=== PATIENT | female | born 1940 | race African-American/Black ===

== ENCOUNTER 2017-08-20 15:17 | Observation (INO) | payer MEDICARE, MEDICAID ==
[2017-08-20] MEDS ORDERED: METOCLOPRAMIDE HCL INJ/PF 10 MG/2 ML SDV IV ONE (16:05)
[2017-08-20] MEDS ORDERED: NITROGLYCERIN 0.4 MG/TAB 25 TAB/BOTTLE SL PRN (16:05)
[2017-08-20] MEDS ORDERED: MORPHINE SULFATE 10 MG/ML INJ IV ONE (16:06)
[2017-08-20] MEDS ORDERED: NORMAL SALINE 1000 ML 1,000 ML IV PRN (16:06)
[2017-08-20] MEDS ORDERED: DIPHENHYDRAMINE HCL 50 MG/ML VIAL IV ONE (16:06)
--- NOTE | 2017-08-20 16:08 | ER Document Report ---
ED Cardiac - General Chief Complaint: Chest Pain > 30 Stated Complaint: CHEST PAIN Time Seen by Provider: 08/20/17 16:05 Mode of Arrival: Ambulatory Information source: Patient Notes: This is a 77-year-old female with a history of coronary artery disease ([place], 4 stents in the past), hypertension, dyslipidemia, reflux who presents to the emergency room with retrosternal chest pain radiating down the left arm associated with shortness of breath and headache. Patient took full dose aspirin prior to coming to the emergency room. TRAVEL OUTSIDE OF THE [place] IN LAST 30 DAYS: No - HPI Patient complains to provider of: Chest pain Use of: denies: Alcohol, Amphetamines, Bath salts, Caffeine, Cocaine, Decongestants, Other Was the onset of pain: Gradual Is the pain a: New problem Chest pain location: Substernal Quality of pain: Dull Chest pain radiation location: Left arm, Left shoulder Severity now: Mild Severity at worst: Moderate Pain level currently: 1 Chest pain precipitating factors: At Rest Cardiac risk factors: Hypertension, Dyslipidemia, Hx NE Positive cardiac history: Yes Associated symptoms: Headache, Shortness of breath. denies: Abdominal pain, Jaw pain, Syncope Exacerbated by: Denies Relieved by: NTG Similar symptoms previously: Yes Recently seen / treated by doctor: No - Related Data Allergies/Adverse Reactions: Radiation Dye Allergy (Uncoded 07/25/15 12:04) Past Medical History - General Information source: Patient - Social History Smoking Status: Never Smoker Cigarette use (# per day): No Chew tobacco use (# tins/day): No Frequency of alcohol use: None Drug Abuse: None Lives with: Family Family History: Reviewed & Not Pertinent Patient has suicidal ideation: No Patient has homicidal ideation: No - Past Medical History Cardiac Medical History: Reports: Hx Coronary Artery Disease, Hx Heart Attack, Hx Hypercholesterolemia, Hx Hypertension Pulmonary Medical History: Denies: Hx Tuberculosis GI Medical History: Reports: Hx Gastroesophageal Reflux Disease Musculoskeltal Medical History: Reports Hx Arthritis Past Surgical History: Reports: Hx Bowel Surgery - COLON CA 1993, Hx Cardiac Catheterization - 4X stents, Hx Coronary Stent, Hx Tubal Ligation. Denies: Hx Pacemaker - Immunizations Hx Diphtheria, Pertussis, Tetanus Vaccination: Yes Hx Pneumococcal Vaccination: 08/21/07 Review of Systems - Review of Systems Constitutional: denies: Chills, Fever EENT: No symptoms reported Cardiovascular: See HPI Respiratory: No symptoms reported Gastrointestinal: No symptoms reported Genitourinary: No symptoms reported Female Genitourinary: No symptoms reported Musculoskeletal: No symptoms reported Skin: No symptoms reported Hematologic/Lymphatic: No symptoms reported Neurological/Psychological: No symptoms reported Physical Exam - Vital signs Vitals: Resp BP Pulse Ox 12 138/71 H 100 08/20/17 15:37 08/20/17 15:37 08/20/17 15:37 Notes: Physical exam: GENERAL: 77-year-old female, alert and oriented 3, blood pressure 138/71, pulse 69, respiratory rate 18, O2 sat 100% on room air HEAD: Atraumatic, normocephalic. EYES: Pupils equal round and reactive to light, extraocular movements intact, sclera anicteric, conjunctiva are normal. ENT: TMs normal, nares patent, oropharynx clear without exudates. Moist mucous membranes. NECK: Normal range of motion, supple without obvious mass or JVD. LUNGS: Breath sounds clear to auscultation bilaterally and equal. No wheezes rales or rhonchi. HEART: Regular rate and rhythm without murmurs, rubs or gallops. ABDOMEN: Soft, normoactive bowel sounds. No tenderness to palpation. No guarding, no rebound. No masses appreciated. EXTREMITIES: Normal range of motion, no pitting or edema. No clubbing or cyanosis. NEUROLOGICAL: Cranial nerves II through XII grossly intact. Normal speech, moving all extremities. PSYCH: Normal mood, normal affect. SKIN: Warm, Dry, normal turgor, no rashes or lesions noted. Course - Vital Signs Vital signs: Temp Pulse Resp BP Pulse Ox 14 137/66 H 97 08/20/17 18:01 08/20/17 18:01 08/20/17 18:01 - Laboratory Result Diagrams: 08/20/17 16:17 08/20/17 16:17 Laboratory results interpreted by me: 08/20/17 08/20/17 16:17 16:17 Hgb 11.8 L MCH 26.8 L RDW 14.4 H Seg Neutrophils % 40.6 L BUN 34 H Est GFR (Non-Af Amer) 55 L Glucose 112 H Calcium 10.5 H Total Protein 8.3 H - Diagnostic Test Radiology reviewed: Image reviewed, Reports reviewed - Chest x-ray shows no infiltrates - EKG Interpretation by Me Rate: Normal Rhythm: NSR - EKG shows normal sinus rhythm with a left axis deviation, intraventricular conduction delay with poor R-wave progression. Discharge - Discharge Clinical Impression: Chest pain Condition: Stable Disposition: ADMITTED OBSERVATION Admitting Provider: Hospitalist - Dr House Unit Admitted: [facility]
[2017-08-20 16:30] LABS: ABSOLUTE EOSINOPHILS # (AUTO) 0.1 10^3/uL (0.0-0.6); ABSOLUTE LYMPHOCYTES (AUTO) 2.8 10^3/uL (0.5-4.7); ABSOLUTE MONOCYTES (AUTO) 0.7 10^3/uL (0.1-1.4); ABSOLUTE NEUT (AUTO) 2.5 10^3/uL (1.7-8.2); BASOPHILS % (AUTO) 0.7 % (0-2); EOSINOPHILS % (AUTO) 2.4 % (0-6); HEMATOCRIT 36.5 % (36.0-47.0); HEMOGLOBIN 11.8 g/dL (12.0-15.5); LYMPHOCYTES % (AUTO) 44.9 % (13-45); MEAN CORPUSCULAR HEMOGLOBIN 26.8 pg (27.0-33.4); MEAN CORPUSCULAR HGB CONC 32.2 g/dL (32.0-36.0); MEAN CORPUSCULAR VOLUME 83 fl (80-97); MONOCYTES % (AUTO) 11.4 % (3-13); PLATELET COUNT 286 10^3/uL (150-450); RED BLOOD COUNT 4.39 10^6/uL (3.72-5.28); RED CELL DISTRIBUTION WIDTH 14.4 % (11.5-14.0); SEGMENTED NEUTROPHILS % (AUTO) 40.6 % (42-78); TOTAL CELLS COUNTED % (AUTO) 100 %; WHITE BLOOD COUNT 6.2 10^3/uL (4.0-10.5)
[2017-08-20 16:34] LABS: INTERNATIONAL RATION (INR) 0.87; PROTHROMBIN TIME 12.5 SEC (11.4-15.4)
[2017-08-20 16:54] LABS: ALANINE AMINOTRANSFERASE 24 U/L (9-52); ALBUMIN 4.4 g/dL (3.5-5.0); ALKALINE PHOSPHATASE 73 U/L (38-126); ANION GAP 11 (5-19); ASPARTATE AMINO TRANSFERASE 26 U/L (14-36); BILIRUBIN,DIRECT 0.2 mg/dL (0.0-0.4); BILIRUBIN,TOTAL 0.2 mg/dL (0.2-1.3); BLOOD UREA NITROGEN 34 mg/dL (7-20); CALCIUM 10.5 mg/dL (8.4-10.2); CARBON DIOXIDE 25 mmol/L (22-30); CHLORIDE 105 mmol/L (98-107); CREATINE KINASE 94 U/L (30-135); GLUCOSE 112 mg/dL (75-110); POTASSIUM 3.8 mmol/L (3.6-5.0); SODIUM 140.6 mmol/L (137-145); TOTAL PROTEIN 8.3 g/dL (6.3-8.2)
[2017-08-20 17:00] LABS: CREATINE KINASE MB 1.41 ng/mL (<4.55); TROPONIN I 0.012 ng/mL
--- NOTE | 2017-08-20 17:18 | RADIOLOGY REPORT (SQ) ---
EXAM DESCRIPTION: CHEST SINGLE VIEW COMPLETED DATE/TIME: 08/20/2017 4:26 pm REASON FOR STUDY: cp COMPARISON: July 2015 EXAM PARAMETERS: NUMBER OF VIEWS: One view. TECHNIQUE: Single frontal radiographic view of the chest acquired. RADIATION DOSE: NA LIMITATIONS: None. FINDINGS: LUNGS AND PLEURA: No opacities, masses or pneumothorax. No pleural effusion. MEDIASTINUM AND HILAR STRUCTURES: No masses. Contour normal. HEART AND VASCULAR STRUCTURES: Cardiac silhouette remains enlarged and is unchanged in configuration. Tortuous thoracic aorta is again identified. BONES: No acute findings. HARDWARE: None in the chest. OTHER: Some elevation of the right hemidiaphragm is again seen. IMPRESSION: No significant interval change. No acute findings. Other findings as noted above TECHNICAL DOCUMENTATION: JOB ID: [id number] [employer]- All Rights Reserved
[2017-08-20] MEDS ORDERED: NITROGLYCERIN 2% OINTMENT 1 GM PACKET TP ONE (17:30)
[2017-08-20] MEDS ORDERED: OXYCODONE-ACETAMINOPHEN 5-325 MG TABLET PO PRN (18:16)
[2017-08-20] MEDS ORDERED: ACETAMINOPHEN 325 MG TABLET PO PRN (18:16)
[2017-08-20] MEDS ORDERED: ONDANSETRON HCL INJ/PF 4 MG/2 ML SDV IV PRN (18:16)
[2017-08-20] MEDS ORDERED: TEMAZEPAM 7.5 MG CAPSULE PO PRN (18:16)
--- NOTE | 2017-08-20 18:16 | PDOC H&P ---
History of Present Illness Admission Date/PCP: 2016 Patient complains of: Chest pain, dizziness and headache. History of Present Illness: NIGEL CEVALLOS is a 77 year old female with known coronary artery disease. She has a history of prior stent placement by Dr. Chris Diaz. The patient stated that she woke up this morning and went to the kitchen. While she was standing up at approximately 7 AM she started to have chest pain that radiated down her left arm. The pain has been present intermittently throughout the day. It generally lasts for 10-15 minutes and then subsides. She thinks that it is worse with exertion but she was unable to list any alleviating factors. She stated that even sitting down did not alleviate her symptoms. As stated above the pain radiates down her left arm. It is also associated with lightheadedness, dizziness and nausea. She is also complaining of a frontal dull ache across her forehead and her neck is hurting. She has had mild symptoms yesterday but did not want to seek medical attention. The patient was recently hospitalized on 01 August 2017 at [facility] in [place] for similar symptoms. According to the patient's daughter they performed an echocardiogram and were told that it "" looked good. During that hospitalization she was noted to have heart rates into the 30s. Her metoprolol was discontinued. She states that her symptoms today are very similar to the symptoms she had when she was admitted at [facility]. When she was discharged from [facility] she actually felt very well until yesterday. Please note that the patient is unable to give me her current medication list. The list below is currently unverified. Past Medical History Cardiac Medical History: Reports: Coronary Artery Disease, Myocardial Infarction , Hyperlipidema, Hypertension Pulmonary Medical History: Denies: Tuberculosis GI Medical History: Reports: Gastroesophageal Reflux Disease Musculoskeltal Medical History: Reports: Arthritis Past Surgical History Past Surgical History: Reports: Cardiac Catheterization - 4X stents, Coronary Stent, Tubal Ligation Denies: Pacemaker Social History Smoking Status: Never Smoker Frequency of Alcohol Use: None Hx Recreational Drug Use: No Hx Prescription Drug Abuse: No - Advance Directive Resuscitation Status: Full Code Surrogate healthcare decision maker:: The patient's surrogate decision maker is her daughter, Urvashi olivo. She can be reached at [phone]. Family History Family History: Reviewed & Not Pertinent Parental Family History Reviewed: Yes - Hypertension, coronary artery disease. Children Family History Reviewed: Yes Sibling(s) Family History Reviewed.: Unknown Medication/Allergy Home Medications: Pravastatin Sodium [Pravachol] 40 mg PO DAILY 07/10/11 Aspirin [Aspirin 81 mg Chewable Tablet] 2 tab PO DAILY 07/11/11 Amlodipine Besylate 1 tab PO DAILY 03/24/13 Clopidogrel Bisulfate [Plavix 75 mg Tablet] 75 mg PO QHS 03/24/13 Dexlansoprazole [Dexilant 60 mg Capsule] 60 mg PO DAILY 03/24/13 Losartan Potassium 100 mg PO DAILY 03/24/13 Meclizine HCl [Antivert 25 mg Tablet] 12.5 mg PO QHS PRN 03/24/13 Metoprolol Tartrate [Lopressor 25 mg Tablet] 12.5 mg PO BID 03/24/13 Ranolazine [Ranexa 500 mg Tab.sr] 500 mg PO Q12 #60 tab.sr.12h 07/26/15 Allergies/Adverse Reactions: Radiation Dye Allergy (Uncoded 07/25/15 12:04) Review of Systems Constitutional: PRESENT: headache(s) Eyes: ABSENT: visual disturbances Ears: ABSENT: hearing changes Nose, Mouth, and Throat: PRESENT: headache(s). ABSENT: as per HPI, mouth pain, sore throat, vertigo, other Cardiovascular: PRESENT: chest pain Respiratory: ABSENT: cough, hemoptysis Gastrointestinal: PRESENT: nausea Genitourinary: ABSENT: dysuria, hematuria Musculoskeletal: ABSENT: joint swelling Integumentary: ABSENT: rash, wounds Neurological: ABSENT: abnormal gait, abnormal speech, confusion, dizziness, focal weakness, syncope Psychiatric: ABSENT: anxiety, depression, homidical ideation, suicidal ideation Endocrine: ABSENT: cold intolerance, heat intolerance, polydipsia, polyuria Hematologic/Lymphatic: ABSENT: easy bleeding, easy bruising Allergic/Immunologic: ABSENT: as per HPI, seasonal rhinorrhea, other Physical Exam Vital Signs: Temp Pulse Resp BP Pulse Ox 100 08/20/17 16:08 Additional comments: The patient appears to be very healthy for her stated age. Her cognition and mentation are appropriate. She does not appear to be toxic or in any distress. Her facial appearance is unremarkable. Her oropharynx is benign without purulent exudates. Mucous membranes are very moist. Lips are normal. She does not have any JVD. Her neck is supple. She does not have any cervical or supraclavicular lymphadenopathy. The trachea is midline. Thyroid is nonpalpable. Lungs are clear to auscultation bilaterally. Patient's cardiac exam is regular. I do not appreciate any murmurs, gallops or rubs. The abdomen is soft and flat. Bowel sounds are noted in the lower quadrants. She does not have guarding or rebound noted and there are no hernias or masses present. The lower extremities are warm to touch without any pitting edema. The skin is warm dry and intact without lesions or rashes. Results Laboratory Results: 08/20/17 16:17 08/20/17 16:17 08/20/17 08/20/17 16:17 16:17 WBC 6.2 RBC 4.39 Hgb 11.8 L Hct 36.5 MCV 83 MCH 26.8 L MCHC 32.2 RDW 14.4 H Plt Count 286 Seg Neutrophils % 40.6 L Lymphocytes % 44.9 Monocytes % 11.4 Eosinophils % 2.4 Basophils % 0.7 Absolute Neutrophils 2.5 Absolute Lymphocytes 2.8 Absolute Monocytes 0.7 Absolute Eosinophils 0.1 Absolute Basophils 0.0 Sodium 140.6 Potassium 3.8 Chloride 105 Carbon Dioxide 25 Anion Gap 11 BUN 34 H Creatinine 0.98 Est GFR ( Amer) > 60 Est GFR (Non-Af Amer) 55 L Glucose 112 H Calcium 10.5 H Total Bilirubin 0.2 AST 26 ALT 24 Alkaline Phosphatase 73 Total Protein 8.3 H Albumin 4.4 08/20/17 08/20/17 16:17 16:17 Creatine Kinase 94 CK-MB (CK-2) 1.41 Troponin I 0.012 Impressions: Chest X-Ray 08/20/17 16:08 IMPRESSION: No significant interval change. No acute findings. Other findings as noted above Assessment & Plan - Diagnosis (1) Bradycardia Is this a current diagnosis for this admission?: No (2) Dizziness Is this a current diagnosis for this admission?: Yes (3) Coronary artery disease Is this a current diagnosis for this admission?: Yes (4) GERD (gastroesophageal reflux disease) Is this a current diagnosis for this admission?: Yes (5) Diabetes mellitus Is this a current diagnosis for this admission?: Yes (6) Chest pain Qualifiers: Chest pain type: unspecified Qualified Code(s): R07.9 - Chest pain, unspecified Is this a current diagnosis for this admission?: Yes - Time Time Spent: 50 to 70 Minutes - Inpatient Certification Medical Necessity: Risk of Complication if Not Cared For in Hospital, Risk of Diagnosis Which Will Require Inpatient Eval/Care/Monitoring - Plan Summary Plan Summary: The patient is a 77-year-old female with known coronary artery disease. She presents with chest pain. Her symptoms are somewhat atypical for ischemic heart disease. She has associated nausea and headache. In addition, she was recently evaluated at [facility] for bradycardia associated with hypotension. Since her metoprolol has been held she has been feeling better until yesterday. She had an echocardiogram in [place] that was "" normal. At this point time we will admit the patient to observation status. She will get cardiac rule outs. I need to reconcile her medication list because she was unable to tell me what her medications were upon discharge from her previous hospitalization. I do not think the patient has evidence of influenza or other viral prodrome at this time. It is likely that she has fluctuations in her heart rate and blood pressure. She did tell me that Dr. Diaz in [place] recently did a Holter monitor which was unremarkable. Certainly, she warrants telemetry monitoring overnight. She is not appropriate for discharge home until a complete set of 3 cardiac enzymes has been performed.
[2017-08-20] MEDS ORDERED: 1/2 NORMAL SALINE 1,000 ML IV PRN (18:23)
[2017-08-20 19:29] LABS: CREATINE KINASE MB 1.44 ng/mL (<4.55)
[2017-08-20 19:34] LABS: TROPONIN I < 0.012 ng/mL
[2017-08-20] MEDS: FAMOTIDINE 20 MG TABLET PO SCH (22:10)
[2017-08-21 01:36] LABS: CREATINE KINASE MB 1.43 ng/mL (<4.55)
[2017-08-21 01:39] LABS: TROPONIN I < 0.012 ng/mL
[2017-08-21 07:25] LABS: ANION GAP 10 (5-19); BLOOD UREA NITROGEN 22 mg/dL (7-20); CALCIUM 9.8 mg/dL (8.4-10.2); CARBON DIOXIDE 25 mmol/L (22-30); CHLORIDE 105 mmol/L (98-107); CREATINE KINASE 80 U/L (30-135); GLUCOSE 102 mg/dL (75-110); MAGNESIUM 1.8 mg/dL (1.6-2.3); POTASSIUM 3.9 mmol/L (3.6-5.0); SODIUM 139.9 mmol/L (137-145)
[2017-08-21 07:31] LABS: CREATINE KINASE MB 1.34 ng/mL (<4.55); TROPONIN I 0.013 ng/mL
[2017-08-21] MEDS: FAMOTIDINE 20 MG TABLET PO SCH (09:44)
[2017-08-21] MEDS: HYDRALAZINE HCL 25 MG TABLET PO SCH ×2 (09:45→17:14)
[2017-08-21] MEDS ORDERED: (PENDING PHARMACY ID) (Pravastatin Sodium [Pravachol] 40 MG) PO SCH (10:00)
[2017-08-21] MEDS ORDERED: ASPIRIN 81 MG TABLET, CHEWABLE PO SCH (10:00)
[2017-08-21] MEDS ORDERED: (PENDING PHARMACY ID) (Losartan Potassium [Losartan Potassium] 100 MG) PO SCH (10:00)
[2017-08-21] MEDS ORDERED: LOSARTAN POTASSIUM 50 MG TABLET PO SCH (10:00)
--- NOTE | 2017-08-21 11:29 | RADIOLOGY REPORT (SQ) ---
EXAM DESCRIPTION: CERV SP 3 VIEW OR LESS COMPLETED DATE/TIME: 08/21/2017 11:18 am REASON FOR STUDY: Neck pain and dizzyness COMPARISON: None. NUMBER OF VIEWS: Three views. TECHNIQUE: AP, lateral and odontoid radiographic images acquired of the cervical spine. LIMITATIONS: None. FINDINGS: MINERALIZATION: Normal. ALIGNMENT: Anatomic. VERTEBRAE: Vertebral bodies of normal height. DISCS: Multilevel degenerative disc disease with uncinate joint hypertrophy and osteophyte formation. HARDWARE: None in the spine. SOFT TISSUES: No masses or calcifications. Lung apices clear. OTHER: No other significant finding. IMPRESSION: MULTILEVEL DEGENERATIVE CHANGE WITHOUT ACUTE OSSEOUS ABNORMALITY. TECHNICAL DOCUMENTATION: JOB ID: [id number] [employer]- All Rights Reserved
[2017-08-21] MEDS ORDERED: FLUTICASONE NASAL SPRAY 50 MCG/SPRY 120 SPRAY/16 GM NASL ONE (11:30)
--- NOTE | 2017-08-21 17:21 | PDOC DISCHARGE SUMMARY ---
General - Admit/Disc Date/PCP Admission Date/Primary Care Provider: 08/20/17 18:17 Discharge Date: 08/21/17 - Discharge Diagnosis (1) Bradycardia Is this a current diagnosis for this admission?: No (2) Dizziness Is this a current diagnosis for this admission?: Yes (3) Coronary artery disease Is this a current diagnosis for this admission?: Yes (4) GERD (gastroesophageal reflux disease) Is this a current diagnosis for this admission?: Yes (5) Diabetes mellitus Is this a current diagnosis for this admission?: Yes (6) Chest pain Is this a current diagnosis for this admission?: Yes (7) Disc disease, degenerative, cervical Is this a current diagnosis for this admission?: Yes (8) Headache Is this a current diagnosis for this admission?: Yes - Additional Information Resuscitation Status: Full Code Discharge Diet: Cardiac Discharge Activity: Activity As Tolerated, Balance Activity w/Rest Home Medications: Aspirin [Aspirin 81 mg Chewable Tablet] 81 mg PO DAILY tab.chew 08/21/17 Clopidogrel Bisulfate [Plavix 75 mg Tablet] 75 mg PO DAILY 08/21/17 Hydralazine HCl [Apresoline 25 mg Tablet] 25 mg PO Q8 08/21/17 Hydrochlorothiazide [Hydrodiuril 25 mg Tablet] 25 mg PO DAILY 08/21/17 Losartan Potassium [Cozaar 100 mg Tablet] 100 mg PO DAILY 08/21/17 Pantoprazole Sodium [Protonix] 40 mg PO DAILY 08/21/17 Pravastatin Sodium [Pravachol] 40 mg PO DAILY 08/21/17 History of Present Illness History of Present Illness: NIGEL CEVALLOS is a 77 year old female with known coronary artery disease. She has a history of prior stent placement by Dr. Chris Diaz. The patient stated that she woke up this morning and went to the kitchen. While she was standing up at approximately 7 AM she started to have chest pain that radiated down her left arm. The pain has been present intermittently throughout the day. It generally lasts for 10-15 minutes and then subsides. She thinks that it is worse with exertion but she was unable to list any alleviating factors. She stated that even sitting down did not alleviate her symptoms. As stated above the pain radiates down her left arm. It is also associated with lightheadedness, dizziness and nausea. She is also complaining of a frontal dull ache across her forehead and her neck is hurting. She has had mild symptoms yesterday but did not want to seek medical attention. The patient was recently hospitalized on 01 August 2017 at [facility] in [place] for similar symptoms. According to the patient's daughter they performed an echocardiogram and were told that it "" looked good. During that hospitalization she was noted to have heart rates into the 30s. Her metoprolol was discontinued. She states that her symptoms today are very similar to the symptoms she had when she was admitted at [facility]. When she was discharged from [facility] she actually felt very well until yesterday. Hospital Course Hospital Course: The patient was admitted and ruled out for myocardial infarction by cardiac enzymes. Her chest pain is atypical. Her main complaint is headache. The appears to be due to sinus pressure. She was started on flonase 2 sprays once per day. She also complains of dizziness and neck pain. Cervical films were done showing significant cervical disc disease. Her medications were otherwise unchanged. Metoprolol was recently discontinued when she was recently admitted to [facility] in [place], [place]. Physical Exam Vital Signs: Temp Pulse Resp BP Pulse Ox 98.0 F 64 18 116/83 99 08/21/17 15:45 08/21/17 15:45 08/21/17 15:45 08/21/17 15:45 08/21/17 15:45 Intake & Output 08/20/17 08/21/17 08/22/17 06:59 06:59 06:59 Intake Total 972 375 Balance 972 375 Weight 91.1 kg General appearance: PRESENT: no acute distress, cooperative Head exam: PRESENT: atraumatic, normocephalic Eye exam: PRESENT: EOMI, PERRLA Ear exam: PRESENT: normal external ear exam Mouth exam: PRESENT: neck supple Throat exam: ABSENT: post pharyngeal erythema, tonsillar erythema, tonsillar exudate, tonsillogmegaly, other Neck exam: PRESENT: carotid bruit, full ROM, JVD, lymphadenopathy, meningismus, tenderness, thyromegaly, tracheal deviation, tracheostomy, other Respiratory exam: PRESENT: clear to auscultation vitor. ABSENT: rales, rhonchi, wheezes Cardiovascular exam: PRESENT: RRR. ABSENT: diastolic murmur, rubs, systolic murmur Pulses: PRESENT: normal dorsalis pedis pul GI/Abdominal exam: PRESENT: normal bowel sounds, soft. ABSENT: distended, guarding, mass, organolmegaly, rebound, tenderness Rectal exam: PRESENT: deferred Neurological exam: PRESENT: alert, awake, oriented to person, oriented to place , oriented to time, oriented to situation, CN II-XII grossly intact. ABSENT: motor sensory deficit Psychiatric exam: PRESENT: appropriate affect, normal mood. ABSENT: homicidal ideation, suicidal ideation Focused psych exam: ABSENT: catatonic, delusional, euphoric, flight of ideas, internal stimuli, paranoid, pressured speech, psychomotor agitation, restlessness, other Skin exam: PRESENT: dry, intact, warm. ABSENT: cyanosis, rash Results Laboratory Results: 08/21/17 06:30 08/21/17 06:30 Sodium 139.9 Potassium 3.9 Chloride 105 Carbon Dioxide 25 Anion Gap 10 BUN 22 H Creatinine 0.71 Est GFR ( Amer) > 60 Est GFR (Non-Af Amer) > 60 Glucose 102 Calcium 9.8 Magnesium 1.8 08/20/17 08/20/17 08/21/17 18:45 18:45 00:39 Creatine Kinase 88 85 CK-MB (CK-2) 1.44 Troponin I < 0.012 08/21/17 08/21/17 08/21/17 00:39 06:30 06:30 Creatine Kinase 80 CK-MB (CK-2) 1.43 1.34 Troponin I < 0.012 0.013 Impressions: Chest X-Ray 08/20/17 16:08 IMPRESSION: No significant interval change. No acute findings. Other findings as noted above Cervical Spine X-Ray 08/21/17 00:00 IMPRESSION: MULTILEVEL DEGENERATIVE CHANGE WITHOUT ACUTE OSSEOUS ABNORMALITY. Plan Discharge Plan: The patient will be discharged with close follow-up with cardiology and her primary care physician. Time Spent: Less than 30 Minutes
[2017-08-21 18:11] VITALS: BP 137/48
[2017-08-21] MEDS ORDERED: ATORVASTATIN CALCIUM 10 MG TABLET PO SCH (22:00)
[2017-08-21] MEDS ORDERED: CLOPIDOGREL BISULFATE 75 MG TABLET PO SCH (22:00)
--- NOTE | 2017-08-22 09:32 | EKG REPORT ---
SEVERITY:- ABNORMAL ECG - SINUS RHYTHM FIRST DEGREE AV BLOCK LVH WITH SECONDARY REPOLARIZATION ABNORMALITY : Confirmed by: Orquidea Davidson 22-Aug-2017 09:31:47
== END 2017-08-21 18:23 | disposition home or self-care (01) ==
LOC: ER 15:17 → EH 18:17 → 3N 19:41
PROVIDERS: ADMIT Pediatrics; ATTEND Pediatrics
DX: R07.9 Chest pain, unspecified (principal); R00.1 Bradycardia, unspecified; R42 Dizziness and giddiness; I25.10 Atherosclerotic heart disease of native coronary artery without angina pectoris; K21.9 Gastro-esophageal reflux disease without esophagitis; E11.9 Type 2 diabetes mellitus without complications; M50.30 Other cervical disc degeneration, unspecified cervical region; R51 Headache; E83.52 Hypercalcemia; E78.5 Hyperlipidemia, unspecified; I10 Essential (primary) hypertension; R11.0 Nausea; I25.2 Old myocardial infarction; Z79.899 Other long term (current) drug therapy; Z79.82 Long term (current) use of aspirin; Z79.02 Long term (current) use of antithrombotics/antiplatelets; Z95.5 Presence of coronary angioplasty implant and graft; Z98.51 Tubal ligation status; Z82.49 Family history of ischemic heart disease and other diseases of the circulatory system
CPT/HCPCS: 93005; 99285; 96361; 96374; 96375; 36415 ×2; 82553 ×2; 82550 ×2; 83735; 85025; 85610; 80048; 80053; 84484 ×2; 72040; 71010; 93010; A9270 ×9; J1200; J2765; J2270; J7030; J3490

== ENCOUNTER → 2020-08-07 | Outpatient (CLI) | payer MEDICARE, MEDICAID ==
--- NOTE | 2020-08-07 14:55 | RADIOLOGY REPORT (SQ) ---
EXAM DESCRIPTION: VENOUS UNILATERAL LOWER IMAGES COMPLETED DATE/TIME: 08/07/2020 2:47 pm REASON FOR STUDY: RT KNEE PAIN, POST OP 3 DAYS M17.11 UNILATERAL PRIMARY OSTEOARTHRITIS, RIGHT KNEE M25.461 EFFUSION, RIGHT KNEE COMPARISON: None. TECHNIQUE: Dynamic and static fajardo scale and color images acquired of the right leg venous system. S elected spectral images acquired with additional compression and augmentation maneuvers. The contrala teral common femoral vein and saphenofemoral junction were also imaged. Images stored on PACS. LIMITATIONS: None. FINDINGS: COMMON FEMORAL: Normal phasicity, compression and augmentation. No visualized echogenic ma terial on fajardo scale. No defects on color images. FEMORAL: Normal compression and augmentation. No visualized echogenic material on fajardo scale. No defe cts on color images. POPLITEAL: Normal compression, augmentation. No visualized echogenic material on fajardo scale. No defec ts on color images. CALF VESSELS: Normal compression, augmentation. No visualized echogenic material on fajardo scale. No de fects on color images. GSV and SSV: Normal compression, augmentation. No visualized echogenic material on fajardo scale. No def ects on color images. ANY DEEP VENOUS INSUFFICIENCY: Not evaluated. ANY EVIDENCE OF POPLITEAL CYST: No. OTHER: No other significant finding. CONTRALATERAL COMMON FEMORAL VEIN AND SAPHENOFEMORAL JUNCTION: Normal phasicity, compression and augmentation. No visualized echogenic material on fajardo scale. No de fects on color images. IMPRESSION: NO EVIDENCE DVT OR SVT IN THE RIGHT LEG. TECHNICAL DOCUMENTATION: JOB ID: [id number] [employer]- All Rights Reserved Reading location - IP/workstation name: [email or web address]
== END ==
LOC: SP 12:58
PROVIDERS: ATTEND Orthopaedic Surgery Sports Medicine
DX: M25.561 Pain in right knee (principal); M79.89 Other specified soft tissue disorders
CPT/HCPCS: 93971

== ENCOUNTER 2020-08-08 11:15 | Emergency (ER) | payer MEDICARE, MEDICAID ==
--- NOTE | 2020-08-08 12:41 | ER Document Report ---
Entered by TAMANNA BRAVO SCRIBE 08/08/20 1150 Acting as scribe for:GERMAN CANTRELL MD ED General - General Stated Complaint: ABDOMINAL PAIN Time Seen by Provider: 08/08/20 11:47 Primary Care Provider: SARA CALIXTO MD [Primary Care Provider] - Follow up as needed Mode of Arrival: Medic Information source: Patient Notes: This 80-year-old female patient presents to the emergency department today with complaints of a syncopal event. Patient reports that she had a right knee replacement surgery 3 days ago so she is on pain medication for that. Patient mentions that she has always had some problems with constipation and today prior to arrival she was sitting down on the toilet straining to defecate when she felt very hot and like she was going to pass out. Relative at bedside mentions that the patient's "eyes got big, she stared blankly, and then her head started slouching down". Patient states she has been taking milk of magnesia for constipation but it does not seem to be working. She denies any calf swelling or pain. She is wearing compression stockings bilaterally and has since the operation 3 days ago. TRAVEL OUTSIDE OF THE [place] IN LAST 30 DAYS: No - Related Data Allergies/Adverse Reactions: Radiation Dye Allergy (Uncoded 07/25/15 12:04) Past Medical History - General Information source: Patient - Social History Smoking Status: Unknown if Ever Smoked Cigarette use (# per day): No Frequency of alcohol use: None Drug Abuse: None Lives with: Family Family History: Reviewed & Not Pertinent - Past Medical History Cardiac Medical History: Reports: Hx Coronary Artery Disease, Hx Heart Attack, Hx Hypercholesterolemia, Hx Hypertension GI Medical History: Reports: Hx Gastroesophageal Reflux Disease Musculoskeletal Medical History: Reports Hx Arthritis Past Surgical History: Reports: Hx Bowel Surgery - COLON CA 1993, Hx Cardiac Catheterization - 4X stents, Hx Coronary Stent, Hx Orthopedic Surgery - Right knee replacement - July 2020, Hx Tubal Ligation - Immunizations Hx Diphtheria, Pertussis, Tetanus Vaccination: Yes Hx Pneumococcal Vaccination: 08/21/07 Review of Systems - Review of Systems Constitutional: No symptoms reported EENT: No symptoms reported Cardiovascular: See HPI, Syncope Respiratory: No symptoms reported Gastrointestinal: See HPI, Abdominal pain Genitourinary: No symptoms reported Female Genitourinary: No symptoms reported Musculoskeletal: See HPI, Joint pain - right knee, replaced two days ago. no calf pain. Skin: No symptoms reported Hematologic/Lymphatic: No symptoms reported Neurological/Psychological: No symptoms reported -: Yes All other systems reviewed and negative Physical Exam - Vital signs Vitals: Resp Pulse Ox 15 83 L 08/08/20 11:32 08/08/20 11:32 - Notes Notes: Physical Exam: General: Alert, appears well. HEENT: Normocephalic. Atraumatic. PERRL. Extraocular movements intact. Oropharynx clear. Neck: Supple. Non-tender. Respiratory: No respiratory distress. Clear and equal breath sounds bilaterally. Cardiovascular: Regular rate and rhythm. Abdominal: Morbidly obese. Diffuse lower abdominal tenderness to palpation. No distension. Normal Bowel Sounds. Back: No gross abnormalities. Extremities: Moves all four extremities. Upper extremities: Normal inspection. Normal ROM. Lower extremities: Right knee not palpated, recent surgery. No calf tenderness to palpation. Wearing compression stockings bilaterally. Neurological: Normal cognition. AAOx4. Normal speech. Psychological: Normal affect. Normal Mood. Skin: Warm. Dry. Normal color. Course - Re-evaluation Re-evalutation: 08/08/20 18:06 After the patient's enema, with only a small amount of small hard balls of stool, I did a digital exam and broke up the stool is much as I could. Is unable to actually get my finger around any of the stool to drag it out. After this was done, she was given another enema and was able to pass a large amount of stool and states that she does feel better. - Vital Signs Vital signs: Temp Pulse Resp BP Pulse Ox 97.9 F 45 H 142/99 H 100 08/08/20 17:34 08/08/20 17:34 08/08/20 13:01 08/08/20 17:34 - Laboratory Results Result Diagrams: 08/08/20 14:35 08/08/20 14:35 Laboratory Results Interpreted: 08/08/20 08/08/20 08/08/20 14:08 14:35 14:35 RBC 3.61 L Hgb 10.6 L Hct 32.2 L RDW 17.0 H Cotton % (Auto) 13.8 H Sodium 133.1 L Chloride 95 L Carbon Dioxide 31 H BUN 21 H Glucose 150 H AST 47 H ALT 36 H Urine Protein 30 H Ur Leukocyte Esterase TRACE H Critical Laboratory Results Reviewed: No Critical Results - Radiology Results Critical Radiology Results Reviewed: No Critical Results - Constipation, large rectal fecal load Discharge - Discharge Clinical Impression: Constipation Qualifiers: Constipation type: drug induced constipation Qualified Code(s): K59.03 - Drug induced constipation Condition: Stable Disposition: HOME, SELF-CARE Additional Instructions: Take MiraLAX every day with a large glass of water. Drink plenty of fluids and try to walk as much as you can with your walker. Drink a bottle of mag citrate once daily until your bowels are moving well. Follow-up with your primary care provider if you do not continue to improve. RETURN TO THE EMERGENCY ROOM IF ANY NEW OR WORSENING SYMPTOMS. Referrals: SARA CALIXTO MD [Primary Care Provider] - Follow up as needed I personally performed the services described in the documentation, reviewed and edited the documentation which was dictated to the scribe in my presence, and it accurately records my words and actions.
--- NOTE | 2020-08-08 13:03 | RADIOLOGY REPORT (SQ) ---
EXAM DESCRIPTION: ACUTE ABDOMEN SERIES IMAGES COMPLETED DATE/TIME: 08/08/2020 9:36 am REASON FOR STUDY: Syncope, constipation, abdominal pain COMPARISON: None. NUMBER OF VIEWS: Three views. TECHNIQUE: Frontal chest, supine abdomen and upright/decubitus abdomen radiographic images acquired. LIMITATIONS: External leads partially obscure underlying structures. FINDINGS: CHEST: Lungs are hypoinflated. Some mild basilar opacities may represent atelectasis. Ca nnot exclude small pleural effusions. No visualized pneumothorax. FREE AIR: None. No abnormal gas collections. BOWEL GAS PATTERN: Large amount of stool in the colon. No gas-filled dilated small bowel. CALCIFICATIONS: No suspicious calcifications. HARDWARE: None in the abdomen. SOFT TISSUES: No gross mass or suggestion of organomegaly. BONES: No acute fracture. No worrisome bone lesions. OTHER: No other significant finding. IMPRESSION: 1. Nonobstructive bowel gas pattern with large amount of stool in the colon. 2. hypoinflation with probable mild basilar atelectasis. Cannot exclude infectious component or sma ll effusions. TECHNICAL DOCUMENTATION: JOB ID: [id number] [employer]- All Rights Reserved Reading location - IP/workstation name: [email or web address]
[2020-08-08] MEDS ORDERED: MINERAL OIL 30 ML UDCUP PR ONE ×2 (13:10→16:52)
[2020-08-08] MEDS ORDERED: MORPHINE SULFATE 10 MG/ML INJ IV ONE ×2 (13:53→17:39)
[2020-08-08] MEDS ORDERED: ONDANSETRON HCL INJ/PF 4 MG/2 ML SDV IV ONE ×2 (13:53→17:39)
[2020-08-08 14:44] LABS: ABSOLUTE LYMPHOCYTES (AUTO) 1.5 10^3/uL (0.5-4.7); ABSOLUTE MONOCYTES (AUTO) 1.1 10^3/uL (0.1-1.4); ABSOLUTE NEUT (AUTO) 5.6 10^3/uL (1.7-8.2); BASOPHILS % (AUTO) 0.3 % (0-2); EOSINOPHILS % (AUTO) 0.2 % (0-6); HEMATOCRIT 32.2 % (36.0-47.0); HEMOGLOBIN 10.6 g/dL (12.0-15.5); LYMPHOCYTES % (AUTO) 18.2 % (13-45); MEAN CORPUSCULAR HEMOGLOBIN 29.2 pg (27.0-33.4); MEAN CORPUSCULAR HGB CONC 32.7 g/dL (32.0-36.0); MEAN CORPUSCULAR VOLUME 89 fl (80-97); MONOCYTES % (AUTO) 13.8 % (3-13); PLATELET COUNT 191 10^3/uL (150-450); RED BLOOD COUNT 3.61 10^6/uL (3.72-5.28); SEGMENTED NEUTROPHILS % (AUTO) 67.5 % (42-78); TOTAL CELLS COUNTED % (AUTO) 100 %; WHITE BLOOD COUNT 8.3 10^3/uL (4.0-10.5)
[2020-08-08 14:58] LABS: APPEARANCE,URINE CLEAR; BILIRUBIN,URINE NEGATIVE (NEGATIVE); COLOR,URINE YELLOW; GLUCOSE, URINE NEGATIVE (NEGATIVE); KETONES,URINE NEGATIVE (NEGATIVE); LEUKOCYTE ESTERASE,URINE TRACE (NEGATIVE); NITRITE,URINE NEGATIVE (NEGATIVE); PROTEIN,URINE 30 mg/dL (NEGATIVE); URINE SPECIFIC GRAVITY 1.015; UROBILINOGEN,URINE NEGATIVE mg/dL (<2.0)
[2020-08-08 15:06] LABS: ALBUMIN 3.8 g/dL (3.5-5.0); ALKALINE PHOSPHATASE 78 U/L (38-126); ANION GAP 7 (5-19); ASPARTATE AMINO TRANSFERASE 47 U/L (14-36); BILIRUBIN,DIRECT 0.3 mg/dL (0.0-0.4); BILIRUBIN,TOTAL 0.7 mg/dL (0.2-1.3); BLOOD UREA NITROGEN 21 mg/dL (7-20); CALCIUM 9.8 mg/dL (8.4-10.2); CARBON DIOXIDE 31 mmol/L (22-30); CHLORIDE 95 mmol/L (98-107); CREATINE KINASE 124 U/L (30-135); GLUCOSE 150 mg/dL (75-110); POTASSIUM 3.6 mmol/L (3.6-5.0); TOTAL PROTEIN 7.3 g/dL (6.3-8.2)
[2020-08-08] MEDS ORDERED: MAGNESIUM CITRATE 296 ML BOTTLE PO ONE (16:52)
--- NOTE | 2020-08-08 17:23 | EKG REPORT ---
SEVERITY:- ABNORMAL ECG - SINUS RHYTHM FIRST DEGREE AV BLOCK LEFT AXIS DEVIATION LVH WITH SECONDARY REPOLARIZATION ABNORMALITY ANTERIOR Q WAVES, POSSIBLY DUE TO LVH : Confirmed by: Fifi Rodríguez MD 08-Aug-2020 17:22:08
[2020-08-08 19:45] VITALS: BP 164/75
== END 2020-08-08 19:45 | disposition home or self-care (01) ==
LOC: ER 11:15
DX: K59.03 Drug induced constipation (principal); T50.905A Adverse effect of unspecified drugs, medicaments and biological substances, initial encounter; R55 Syncope and collapse; I25.10 Atherosclerotic heart disease of native coronary artery without angina pectoris; I10 Essential (primary) hypertension; I25.2 Old myocardial infarction; Z96.651 Presence of right artificial knee joint; Z91.041 Radiographic dye allergy status; Z95.5 Presence of coronary angioplasty implant and graft; Z85.038 Personal history of other malignant neoplasm of large intestine
CPT/HCPCS: 93005; 96376; 99285; 51701; 96374; 96375; 36415; 82550; 85025; 80053; 81001; 84484; 74022; 93010; A9270 ×2; J2270; J2405; J3490